=== PATIENT | female | born 1990 | race Caucasian/White ===

== ENCOUNTER 2019-12-07 07:43 | Emergency (ER) | payer BC ==
[2019-12-07 08:01] VITALS: BP 134/85
--- NOTE | 2019-12-07 08:15 | UC ---
Throat Pain/Nasal Jon HPI - HPI Summary HPI Summary: 29-year-old female who has had a sore throat since yesterday. - History of Current Complaint Chief Complaint: UCGeneralIllness Stated Complaint: THROAT COMPLAINT Time Seen by Provider: 12/07/19 07:59 Hx Obtained From: Patient Hx Last Menstrual Period: 12/07/19 ?: No Onset/Duration: Gradual Onset Severity: Mild Pain Intensity: 4 - Allergies/Home Medications Allergies/Adverse Reactions: Allergies Allergy/AdvReac Type Severity Reaction Status Date / Time No Known Allergies Allergy Verified 12/07/19 07:57 Home Medications: Home Medications Ibuprofen TAB* [Advil TAB*] 600 mg PO ONCE 12/07/19 [History Confirmed 12/07/19] PMH/Surg Hx/FS Hx/Imm Hx Previously Healthy: Yes - Surgical History Surgical History: None - Family History Known Family History: Positive: Unknown - Social History Occupation: Employed Full-time Lives: With Family Alcohol Use: None Substance Use Type: None Smoking Status (MU): Never Smoked Tobacco Review of Systems All Other Systems Reviewed And Are Negative: Yes ENT: Positive: Sore Throat Is Patient Immunocompromised?: No Physical Exam Triage Information Reviewed: Yes Appearance: Well-Appearing, No Pain Distress, Well-Nourished Vital Signs: Initial Vital Signs Temp 98 F 12/07/19 07:57 Pulse 82 12/07/19 07:57 Resp 15 12/07/19 07:57 BP 134/85 12/07/19 07:57 Pulse Ox 99 12/07/19 07:57 Vital Signs Reviewed: Yes Eyes: Positive: Conjunctiva Clear ENT: Positive: Pharyngeal erythema - Minimal pharyngeal erythema., TMs normal, Uvula midline Neck exam: Normal Neck: Positive: Supple, Nontender, No Lymphadenopathy Respiratory: Positive: Lungs clear, Normal breath sounds, No respiratory distress, No accessory muscle use Cardiovascular: Positive: RRR, No Murmur, Pulses Normal, Brisk Capillary Refill Musculoskeletal Exam: Normal Neurological Exam: Normal Psychological Exam: Normal Skin Exam: Normal Throat Pain/Nasal Course/Dx - Course Course Of Treatment: Rapid strep test: Negative Patient is comfortable here and in no distress. She does not appear ill. - Differential Dx/Diagnosis Provider Diagnosis: Pharyngitis Discharge ED - Sign-Out/Discharge Documenting (check all that apply): Patient Departure All imaging exams completed and their final reports reviewed: No Studies - Discharge Plan Condition: Good Disposition: HOME Patient Education Materials: Pharyngitis (ED) Forms: *Work Release Referrals: Kala Sanders NP [Primary Care Provider] - Additional Instructions: Increase fluids, warm saltwater gargles, throat lozenges. Follow up with your primary care provider if no improvement in 3 or 4 days. - Billing Disposition and Condition Condition: GOOD Disposition: Home
== END 2019-12-07 08:21 | disposition home or self-care (01) ==
LOC: UCCORT 07:43
DX: J02.9 Acute pharyngitis, unspecified (principal)
CPT/HCPCS: 87651; 99201; G0463